=== PATIENT | female | born 1995 | race Caucasian/White ===

== ENCOUNTER 2023-10-22 19:50 | Outpatient (CLI) | payer OTHER ==
--- NOTE | 2023-11-02 20:47 | P.PCN ---
Date of Procedure: 10/22/23 Operative Findings: Polysomnography report Date of service is 10/22/2023 Pertinent history 27-year-old female patient presenting to me for chronic hypersomnia sleepiness. The patient is excessively tired and sleepy and her symptoms persist no matter how many hours of sleep she takes. There is a history of snoring. No major comorbidities other than history of depression and the patient is currently taking Cymbalta 30 mg p.o. daily. She is obese with a BMI of 44.5. She has a Mallampati class IV. Based on that, a screening polysomnography was ordered Pertinent physical findings The patient has a height of 5 feet, weight is 228 and BMI 44.5 Technical description The patient was studied using a standard complex polysomnography protocol that included recording of the 2 EKG, Central, occipital and frontal EEG, right and left outer canthus EOG, submental EMG, right and left anterior tibialis EMG, respiratory airflow by thermocouple and or pressure/flow transducer, respiratory efforts by abdominal and thoracic PVDF belts, oxygen saturation by cable oximetry. Position by observation synchronized the PSG. Equipment used: [employer]. Sleep characteristics The total time in bed was 427 minutes. Total sleep time was 337.0 minutes. The sleep efficiency was 78.9%. Latency to sleep onset was 39.5 minutes. Wake after sleep onset time was 50 minutes. The sleep architecture was catheterized by 4.5% stage I, 53.4% stage II, 35.8% stage III and 6.4% REM sleep. The latency to REM sleep was 439 minutes. Total arousal index was 18.2 Sleep continuity summary The patient had total of 102 arousals with an index of 18.2. Respiratory arousal index was 0.9 Periodic movement summary There was a total of 7 periodic limb movements with an index of 1.2. Out of those, 6 were associated with arousals with an arousal index of 1.1 Cardiac summary The average heart rate was 84 with a minimum heart rate of 79 and a maximum heart rate of 90 Respiratory summary This patient had a total of 22 obstructive events of which 1 was obstructive apnea, 0 mixed apneas and a total of 21 obstructive hypopneas. The resulting AHI was 3.2. Note that the patient had many unscorable events due to not meeting 4% desaturation rule. Oxygenation analysis The patient had a baseline pulse ox of 96% when awake. The lowest pulse ox was 89% during non-REM sleep. Minimum pulse ox during REM was 93%. No significant desaturations below 89% Assessment Primary snoring without evidence of any sleep breathing disorder. AHI was 3.2. No significant nocturnal oxygen saturations. Abnormal sleep architecture with over representation of stage III sleep, could be a sign of sleep deprivation. Increased nocturnal arousals, not related to sleep apnea. History of depression maintained on Cymbalta Plan Not a candidate for CPAP therapy. AHI is too low without any significant nocturnal oxygen saturations. Encourage weight loss Look for any other comorbidities contributing to this patient's increased sleepiness including depression. She is currently on Cymbalta. Consider stimulant therapy to increase in level of alertness as the patient continues to be somnolent and sleepy despite averaging more than 10 hours of sleep. No clinically symptoms to suggest narcolepsy. Will follow in the office and we will make further recommendations
== END 2023-10-23 05:35 | disposition home or self-care (01) ==
LOC: 3 N SLEEP 19:50
PROVIDERS: ATTEND Internal Medicine Critical Care Medicine
DX: G47.33 Obstructive sleep apnea (adult) (pediatric) (principal); G47.10 Hypersomnia, unspecified; G47.36 Sleep related hypoventilation in conditions classified elsewhere; G47.8 Other sleep disorders; F32.A Depression, unspecified; E66.9 Obesity, unspecified; Z68.41 Body mass index [BMI] 40.0-44.9, adult; Z79.899 Other long term (current) drug therapy
CPT/HCPCS: 95810